=== PATIENT | male | born 1960 | race Caucasian/White ===

== ENCOUNTER 2019-02-03 12:18 | Emergency (ER) | payer OTHER ==
[~2019-02-03] VITALS: Ht 170.2 cm; Wt 93.2 kg
[2019-02-03 12:22] VITALS: BP 175/95
== END 2019-02-03 13:59 | disposition home or self-care (01) ==
LOC: ED 13:57
DX: S91.201A Unspecified open wound of right great toe with damage to nail, initial encounter (principal); X58.XXXA Exposure to other specified factors, initial encounter; Y93.89 Activity, other specified; Y92.89 Other specified places as the place of occurrence of the external cause; Y99.8 Other external cause status
CPT/HCPCS: 11760; 90471; 90715; 99284